=== PATIENT | male | born 1935 | race Two or more races ===

== ENCOUNTER 2023-07-28 13:09 | Emergency (ER) | payer OTHER ==
[~2023-07-28] VITALS: Ht 165.1 cm; Wt 59.0 kg
[2023-07-28] MEDS ORDERED: GLIPIZIDE10 MG (14:49)
[2023-07-28] MEDS ORDERED: LOSARTAN POTASS50 MG (14:49)
[2023-07-28 16:04] LABS: HEMATOCRIT 33.6 % (39.0-48.0); HEMOGLOBIN 11.5 g/dL (13-16.00); MEAN CELL VOLUME 88.3 fL (80.0-100.00); MEAN CORPUSCULAR HEMOGLOBIN 30.3 pg (27.00-32.0); MEAN CORPUSCULAR HGB CONC 34.3 g/dl (32.0-36.0); PLATELET COUNT 303 K/uL (150-450); RED CELL DISTRIBUTION WIDTH 13.7 % (11.5-14.5)
== END 2023-07-28 16:14 | disposition home or self-care (01) ==
LOC: ER 13:10
PROVIDERS: General Practice
DX: S05.8X2A Other injuries of left eye and orbit, initial encounter (principal); W18.39XA Other fall on same level, initial encounter; Y93.89 Activity, other specified; Y92.018 Other place in single-family (private) house as the place of occurrence of the external cause; E11.9 Type 2 diabetes mellitus without complications; Z79.84 Long term (current) use of oral hypoglycemic drugs; I10 Essential (primary) hypertension